=== PATIENT | female | born 1980 | race Caucasian/White ===

== ENCOUNTER 2021-09-22 00:05 | Emergency (ER) | payer OTHER ==
[2021-09-22 02:10] LABS: HEMOGLOBIN 11.4 gm/dl (12.3-15.3); RED BLOOD COUNT 3.52 M/UL (4.00-5.10)
[2021-09-22 02:39] LABS: BUN/CREATININE RATIO 11 (0-10)
[2021-09-22] MEDS ORDERED: LODINE CAP 300300 MG PO (04:25)
[2021-09-22] MEDS ORDERED: ZOFRAN ODT 4 MG4 MG PO (04:25)
[2021-09-22] MEDS ORDERED: BENTYL 20MG TAB20 MG PO (04:25)
== END 2021-09-22 04:28 | disposition home or self-care (01) ==
LOC: ER1 00:05
PROVIDERS: Physician Assistant
DX: R10.30 Lower abdominal pain, unspecified (principal); R30.0 Dysuria; Z90.710 Acquired absence of both cervix and uterus; F17.210 Nicotine dependence, cigarettes, uncomplicated; Z88.0 Allergy status to penicillin; K21.9 Gastro-esophageal reflux disease without esophagitis; Z87.442 Personal history of urinary calculi
CPT/HCPCS: 80053; 81001; 83690; 85025; 87086; 99284